=== PATIENT | female | born 1950 | race Caucasian/White ===

== ENCOUNTER → 2016-11-17 | Outpatient (CLI) | payer OTHER ==
[2016-11-17 17:26] LABS: RHEUMATOID FACTOR < 10.0 U/mL (0-15)
[2016-11-17 17:41] LABS: LYME DISEASE AB IGG NEG (NEG); LYME DISEASE AB IGM NEG (NEG)
[2016-11-22 18:18] LABS: ACETYLCHOLINE RECEP MODULATING <1; ACETYLCHOLINE RECEPT BLOCKING <15 % inhibit (<15); RECEPTOR BINDING AB <0.30 nmol/L (<=0.30)
== END | disposition home or self-care (01) ==
LOC: C.LABBC 14:09
PROVIDERS: ATTEND Psychiatry & Neurology Neurology
DX: M79.1 Myalgia (principal); M60.9 Myositis, unspecified

== ENCOUNTER → 2016-12-16 | Outpatient (CLI) | payer OTHER ==
--- NOTE | 2016-12-16 12:57 | DIAGNOSTIC IMAGING REPORT ---
LUMBAR SPINE W/O CONTRAST CLINICAL HISTORY: 66 years-old Female presenting with LUMBAR STENOSIS, entire body weakness, lumbar pain intermittent, on anti-inflammatories, bilateral feet numbness TECHNIQUE: Multisequence, multiplanar MR imaging of the lumbar spine was performed without the use of intravenous contrast. IV contrast: None. COMPARISON: None. FINDINGS: Localizer images: Unremarkable. Normal lumbar lordosis. Vertebral bodies demonstrate normal height, alignment, and bone marrow signal intensity. Intervertebral disc spaces preserved with only mild disc bulge noted at L5-S1. In combination with mild facet arthropathy, mild right and moderate left neural foraminal narrowing noted at L5-S1. The remainder of the levels demonstrate patent neural foramina. No significant spinal canal stenosis. Spinal cord ends in good position at the inferior endplate of L1. Cauda equina normal in morphology. Paraspinal soft tissues normal. An aortobiiliac bypass graft a be present. IMPRESSION: Mild degenerative change focally at L5-S1 with mild right and moderate left neural foraminal narrowing. Electronically signed by: Michael Fatima M.D. 12/16/2016 12:56 PM Dictated Date/Time: 12/16/2016 12:53 PM
== END | disposition home or self-care (01) ==
LOC: C.MRIBC 11:21
PROVIDERS: ATTEND Psychiatry & Neurology Neurology
DX: M48.061 Spinal stenosis, lumbar region without neurogenic claudication (principal)